=== PATIENT | male | born 1960 | race Caucasian/White ===

== ENCOUNTER 2022-08-20 21:44 | Inpatient (IN) | payer OTHER ==
[2022-08-20] MEDS ORDERED: Ondansetron PF 4 MG/2 ML Vial ONE (22:51)
[2022-08-20] MEDS ORDERED: Morphine 4 MG/ML VIAL ONE (22:51)
[2022-08-20 23:23] LABS: #Eosinphils 0.1 thou/uL (0.0-0.7); #Lymphocytes 0.8 thou/uL (1.20-3.40); #Monocytes 0.6 thou/uL (0.11-0.59); #Neutrophils 7.2 thou/uL (1.40-6.50); %Basophils 0.1 % (0.0-1.0); %Eosinophils 0.7 % (0.0-10.0); %Lymphocytes 8.7 % (21.0-51.0); %Monocytes 7.1 % (0.0-10.0); %Neutrophils 83.4 % (42.0-75.0); Hemoglobin 9.4 g/dL (14.0-18.0); Mean Corpuscular HGB CONC 33.4 g/dL (32.0-36.0); Mean Corpuscular Hemoglobin 29.1 pg (27.0-31.0); Mean Corpuscular Volume 87.3 fl (78.0-98.0); Mean Platelet Volume 7.9 fL (7.4-10.4); Platelet Count 269 10x3/uL (130-400); RBC Distribution Width 20.6 % (11.5-14.5); Red Blood Cell (RBC) Count 3.23 mill/uL (4.70-6.10); White Blood Cell (WBC) Count 8.7 10x3/uL (4.8-10.8)
[2022-08-20 23:34] LABS: Prothrombin Time 13.5 sec (12.0-14.7)
[2022-08-20 23:35] LABS: PTT 37.1 sec (22.9-36.1)
[2022-08-20 23:42] LABS: ALT (SGPT) 17 U/L (8-55); AST (SGOT) 17 U/L (5-34); Albumin 3.6 g/dL (3.4-4.8); Alkaline Phosphatase 164 U/L (40-110); Anion Gap 12 mmol/L (10-20); BUN (Urea Nitrogen) 7 mg/dL (8.4-25.7); Bilirubin, Total 0.3 mg/dL (0.2-1.2); Calc. Creatinine Clearance 0 mL/min (70-130); Calcium 8.7 mg/dL (7.8-10.44); Carbon Dioxide 21 mmol/L (23-31); Chloride 107 mmol/L (98-107); Estimated GFR 101; Globulin 2.9 g/dL (2.4-3.5); Glucose 110 mg/dL (80-115); Potassium 3.2 mmol/L (3.5-5.1); Protein, Total 6.5 g/dL (5.8-8.1); Sodium 137 mmol/L (136-145)
[2022-08-21] MEDS ORDERED: Ipratropium/Albuterol 3 ML NEB NEB PRN (01:44)
[2022-08-21] MEDS ORDERED: TETANUS, DIPHTHERIA TOX,ADULT (TDVAX) 0.5 ML VIAL IM ONE (01:44)
[2022-08-21] MEDS ORDERED: Dextrose 5% in Water 1,000 ML IV PRN (01:44)
[2022-08-21] MEDS ORDERED: Ondansetron PF 4 MG/2 ML Vial IVP PRN (01:44)
[2022-08-21] MEDS ORDERED: Morphine 2 MG/ML VIAL SLOW IVP PRN (01:44)
[2022-08-21] MEDS ORDERED: Ondansetron ODT 4 MG TAB PO PRN (01:44)
[2022-08-21] MEDS ORDERED: Dextrose 50% Abboject 50 ML SYRINGE SLOW IVP PRN (01:44)
[2022-08-21] MEDS ORDERED: Sodium Chloride 0.9% 1,000 ML IV SCH (01:45)
[2022-08-21] MEDS ORDERED: Morphine 4 MG/ML VIAL ONE (02:02)
[2022-08-21 02:20] LABS: Magnesium 1.9 mg/dL (1.6-2.6); Phosphorus 3.8 mg/dL (2.3-4.7)
[2022-08-21 03:29] VITALS: BMI 25.1
[2022-08-21] MEDS: Cyclobenzaprine 10 MG TAB PO PRN ×2 (03:39→20:07)
[2022-08-21] MEDS: traMADol HCl 50 MG TAB PO PRN (03:39)
[2022-08-21] MEDS ORDERED: Potassium Chloride 40 MEQ in Premix Bag 1 BAG IVPB SCH (04:30)
[2022-08-21] MEDS ORDERED: Magnesium 2 GM/50 ML(in water) 2 GM in Premix Bag 1 BAG IVPB SCH (04:30)
[2022-08-21 05:07] LABS: SARS-CoV-2 NAA Rapid Test Not Detected (NotDetected)
[2022-08-21] MEDS: traMADol HCl 50 MG TAB PO SCH ×3 (05:48→18:18)
[2022-08-21] MEDS: Acetaminophen 500 MG TAB PO SCH ×3 (05:48→18:16)
[2022-08-21] MEDS ORDERED: Ketorolac Tromethamine 30 MG/ML VIAL IVP SCH (06:00)
[2022-08-21] MEDS ORDERED: Lorazepam 0.5 MG TAB PO PRN (08:15)
[2022-08-21] MEDS ORDERED: Sucralfate 1 GM TAB PO SCH (08:30)
[2022-08-21] MEDS: Polyethylene Glycol 3350 17 GM Packet PO SCH (08:33)
[2022-08-21] MEDS: Senokot S 8.6-50 MG TAB PO SCH ×2 (08:33→20:06)
[2022-08-21] MEDS: Sertraline 100 MG TAB PO SCH (08:33)
[2022-08-21] MEDS ORDERED: Famotidine 20 MG TAB PO SCH ×2 (09:00)
[2022-08-21] MEDS ORDERED: CEFAZOLIN 2 GM VIAL ONE (09:16)
[2022-08-21] MEDS ORDERED: Sodium Chloride 0.9% 100 ML ONE (09:16)
[2022-08-21] MEDS ORDERED: Fentanyl 100 MCG/2 ML VIAL ONE ×3 (09:17→12:09)
[2022-08-21] MEDS ORDERED: fentaNYL PF 100 MCG/2 ML SYRINGE ONE (10:01)
[2022-08-21] MEDS ORDERED: PROPOFOL 200 MG/20 ML VIAL ONE (10:18)
[2022-08-21] MEDS ORDERED: NEOSTIGMINE 3 MG/3 ML SYR 3 MG/3 ML SYRINGE ONE (10:18)
[2022-08-21] MEDS ORDERED: PHENYLEPHRINE-NS 100 MCG/ML 10 ML SYRINGE ONE (10:18)
[2022-08-21] MEDS ORDERED: Dexamethasone 20 MG/5 ML VIAL ONE (10:18)
[2022-08-21] MEDS ORDERED: Ondansetron PF 4 MG/2 ML Vial ONE (10:18)
[2022-08-21] MEDS ORDERED: Ketorolac Tromethamine 30 MG/ML VIAL ONE (10:18)
[2022-08-21] MEDS ORDERED: Rocuronium Bromide 10 MG/ML (10ML VIAL) ONE (10:18)
[2022-08-21] MEDS ORDERED: Glycopyrrolate 0.2 MG/ML 5 ML SYRINGE ONE (10:18)
[2022-08-21] MEDS ORDERED: Ondansetron HCl/PF 4 MG/2 ML Vial IVP PRN (11:23)
[2022-08-21] MEDS ORDERED: HYDROmorphone 2 MG/ML VIAL SLOW IVP PRN (11:23)
[2022-08-21] MEDS: Morphine 4 MG/ML VIAL SLOW IVP PRN ×2 (15:11→20:07)
[2022-08-21] MEDS: CEFAZOLIN 2 GM in Sodium Chloride 0.9% 100 ML IVPB SCH (18:18)
[2022-08-21] MEDS: traZODone HCl 50 MG TAB PO SCH (21:34)
[2022-08-22] MEDS: traMADol HCl 50 MG TAB PO SCH ×4 (01:19→17:32)
[2022-08-22] MEDS: CEFAZOLIN 2 GM in Sodium Chloride 0.9% 100 ML IVPB SCH (01:20)
[2022-08-22] MEDS: Acetaminophen 500 MG TAB PO SCH ×4 (01:20→17:32)
[2022-08-22 06:05] LABS: #Eosinphils 0.1 thou/uL (0.0-0.7); #Lymphocytes 0.9 thou/uL (1.20-3.40); #Monocytes 0.4 thou/uL (0.11-0.59); #Neutrophils 3.3 thou/uL (1.40-6.50); %Basophils 0.4 % (0.0-1.0); %Eosinophils 2.9 % (0.0-10.0); %Monocytes 8.8 % (0.0-10.0); %Neutrophils 68.9 % (42.0-75.0); Hemoglobin 7.5 g/dL (14.0-18.0); Mean Corpuscular HGB CONC 30.9 g/dL (32.0-36.0); Mean Corpuscular Hemoglobin 27.5 pg (27.0-31.0); Mean Corpuscular Volume 89.1 fl (78.0-98.0); Mean Platelet Volume 8.5 fL (7.4-10.4); Platelet Count 196 10x3/uL (130-400); RBC Distribution Width 20.7 % (11.5-14.5); Red Blood Cell (RBC) Count 2.74 mill/uL (4.70-6.10); White Blood Cell (WBC) Count 4.8 10x3/uL (4.8-10.8)
[2022-08-22 06:36] LABS: Anion Gap 10 mmol/L (10-20); BUN (Urea Nitrogen) 8 mg/dL (8.4-25.7); Calc. Creatinine Clearance 147 mL/min (70-130); Calcium 8.5 mg/dL (7.8-10.44); Carbon Dioxide 26 mmol/L (23-31); Chloride 108 mmol/L (98-107); Estimated GFR 107; Glucose 97 mg/dL (80-115); Phosphorus 3.2 mg/dL (2.3-4.7); Potassium 3.8 mmol/L (3.5-5.1); Sodium 140 mmol/L (136-145)
[2022-08-22] MEDS: Polyethylene Glycol 3350 17 GM Packet PO SCH (08:12)
[2022-08-22] MEDS: Sertraline 100 MG TAB PO SCH (08:13)
[2022-08-22] MEDS: Sucralfate 1 GM TAB PO SCH (08:13)
[2022-08-22] MEDS: Senokot S 8.6-50 MG TAB PO SCH ×2 (08:13→20:24)
[2022-08-22] MEDS: traMADol HCl 50 MG TAB PO PRN ×3 (08:17→21:30)
[2022-08-22] MEDS ORDERED: PHOS-NAK 1 PKT PACK PO SCH (08:30)
[2022-08-22] MEDS: traZODone HCl 50 MG TAB PO SCH (20:24)
[2022-08-22] MEDS: Cyclobenzaprine 10 MG TAB PO PRN (21:31)
[2022-08-23] MEDS: Acetaminophen 500 MG TAB PO SCH ×4 (00:03→16:55)
[2022-08-23] MEDS: traMADol HCl 50 MG TAB PO SCH ×4 (00:04→16:55)
[2022-08-23 05:30] LABS: #Eosinphils 0.2 thou/uL (0.0-0.7); #Lymphocytes 0.9 thou/uL (1.20-3.40); #Monocytes 0.4 thou/uL (0.11-0.59); #Neutrophils 3.3 thou/uL (1.40-6.50); %Basophils 0.3 % (0.0-1.0); %Eosinophils 4.9 % (0.0-10.0); %Lymphocytes 19.2 % (21.0-51.0); %Monocytes 7.8 % (0.0-10.0); %Neutrophils 67.8 % (42.0-75.0); Hemoglobin 7.4 g/dL (14.0-18.0); Mean Corpuscular HGB CONC 31.5 g/dL (32.0-36.0); Mean Corpuscular Hemoglobin 27.8 pg (27.0-31.0); Mean Corpuscular Volume 88.4 fl (78.0-98.0); Mean Platelet Volume 8.2 fL (7.4-10.4); Platelet Count 199 10x3/uL (130-400); RBC Distribution Width 20.6 % (11.5-14.5); Red Blood Cell (RBC) Count 2.64 mill/uL (4.70-6.10); White Blood Cell (WBC) Count 4.8 10x3/uL (4.8-10.8)
[2022-08-23 05:53] LABS: Anion Gap 9 mmol/L (10-20); BUN (Urea Nitrogen) 9 mg/dL (8.4-25.7); Calc. Creatinine Clearance 154 mL/min (70-130); Calcium 8.4 mg/dL (7.8-10.44); Carbon Dioxide 28 mmol/L (23-31); Chloride 106 mmol/L (98-107); Estimated GFR 108; Glucose 113 mg/dL (80-115); Magnesium 1.7 mg/dL (1.6-2.6); Phosphorus 3.4 mg/dL (2.3-4.7); Potassium 3.9 mmol/L (3.5-5.1); Sodium 139 mmol/L (136-145)
[2022-08-23] MEDS: Sucralfate 1 GM TAB PO SCH (06:31)
[2022-08-23] MEDS: Sertraline 100 MG TAB PO SCH (08:33)
[2022-08-23] MEDS: Polyethylene Glycol 3350 17 GM Packet PO SCH (08:33)
[2022-08-23] MEDS: traMADol HCl 50 MG TAB PO PRN (08:33)
[2022-08-23] MEDS: Senokot S 8.6-50 MG TAB PO SCH (08:33)
[2022-08-23] MEDS ORDERED: Magnesium Sulfate In Water 4 GM in Premix Bag 1 BAG IVPB SCH (09:15)
[2022-08-23 15:40] VITALS: TEMP 98.1
[2022-08-23 15:43] VITALS: BP 126/79
[2022-08-23 16:06] LABS: #Eosinphils 0.2 thou/uL (0.0-0.7); #Lymphocytes 1.1 thou/uL (1.20-3.40); #Monocytes 0.4 thou/uL (0.11-0.59); #Neutrophils 3.5 thou/uL (1.40-6.50); %Basophils 0.7 % (0.0-1.0); %Eosinophils 4.1 % (0.0-10.0); %Lymphocytes 20.4 % (21.0-51.0); %Monocytes 8.3 % (0.0-10.0); %Neutrophils 66.5 % (42.0-75.0); Hemoglobin 8.2 g/dL (14.0-18.0); Mean Corpuscular HGB CONC 30.8 g/dL (32.0-36.0); Mean Corpuscular Hemoglobin 27.6 pg (27.0-31.0); Mean Corpuscular Volume 89.8 fl (78.0-98.0); Mean Platelet Volume 7.6 fL (7.4-10.4); Platelet Count 218 10x3/uL (130-400); RBC Distribution Width 19.8 % (11.5-14.5); Red Blood Cell (RBC) Count 2.95 mill/uL (4.70-6.10); White Blood Cell (WBC) Count 5.3 10x3/uL (4.8-10.8)
== END 2022-08-23 17:00 | disposition home or self-care (01) | DRG 481 ==
LOC: ERS 21:44 → SURG B 08-21 01:44
PROVIDERS: ADMIT Specialist; ATTEND Specialist
PROC: 0QS706Z Reposition Left Upper Femur with Intramedullary Internal Fixation Device, Open Approach (ICD-10-PCS; principal; 2022-08-21)
PROC: 30233N1 Transfusion of Nonautologous Red Blood Cells into Peripheral Vein, Percutaneous Approach (ICD-10-PCS; 2022-08-23)
DX: S72.142A Displaced intertrochanteric fracture of left femur, initial encounter for closed fracture (principal); C16.9 Malignant neoplasm of stomach, unspecified; D62 Acute posthemorrhagic anemia; D49.2 Neoplasm of unspecified behavior of bone, soft tissue, and skin; Z20.822 Contact with and (suspected) exposure to COVID-19; D63.0 Anemia in neoplastic disease; W01.0XXA Fall on same level from slipping, tripping and stumbling without subsequent striking against object, initial encounter; F17.210 Nicotine dependence, cigarettes, uncomplicated; D64.9 Anemia, unspecified; E87.6 Hypokalemia; I25.10 Atherosclerotic heart disease of native coronary artery without angina pectoris; Z95.5 Presence of coronary angioplasty implant and graft; Z90.49 Acquired absence of other specified parts of digestive tract; Z79.899 Other long term (current) drug therapy; I25.2 Old myocardial infarction
CPT/HCPCS: 36415; 36430; 71045; 72170; 80048; 80053; 83735; 84100; 85025; 85610; 85730; 86850; 86900; 86901; 90714; 93005; 96374; 96375; 96376; C1713; J1100; J1885; J2270; J2405; J2704; J3010; J3475; J3480; J3490; J7050; P9016; U0002

== ENCOUNTER 2025-04-08 12:34 | Inpatient (IN) | payer MEDICARE, OTHER ==
[2025-04-08] MEDS ORDERED: Ondansetron PF 4 MG/2 ML Vial SLOW IVP PRN (13:42)
[2025-04-08] MEDS ORDERED: Communication Order-Pharmacy FS SCH (13:45)
[2025-04-08 14:31] LABS: #Basophils 0.04 10x3/uL (0.0-0.2); #Eosinophils 0.06 10x3/uL (0.0-0.7); #Monocytes 0.91 10x3/uL (0.11-0.59); #Neutrophils 6.06 10x3/uL (1.40-6.50); %Basophils 0.4 % (0.0-1.0); %Eosinophils 0.6 % (0.0-10.0); %Lymphocytes 25.4 % (21.0-51.0); %Monocytes 9.5 % (0.0-10.0); %Neutrophils 63.7 % (42.0-75.0); Hematocrit 37.6 % (42.0-52.0); Hemoglobin 12.0 g/dL (14.0-18.0); Mean Corpuscular Hemoglobin 29.4 pg (27.0-31.0); Mean Corpuscular Volume 92.2 fL (78.0-98.0); Platelet Count 265 10x3/uL (130-400); Red Blood Cell (RBC) Count 4.08 mill/uL (4.70-6.10); White Blood Cell (WBC) Count 9.53 10x3/uL (4.8-10.8)
[2025-04-08 14:46] LABS: INR-International Normal Ratio 1.0; PTT 28.6 sec (22.9-36.1); Prothrombin Time 13.3 sec (12.0-14.7)
[2025-04-08 15:02] LABS: ALT (SGPT) 28 U/L (Less than 45); AST (SGOT) 45 U/L (11-34); Albumin 4.1 g/dL (3.1-4.5); Alkaline Phosphatase 112 U/L (40-110); Anion Gap 21 mmol/L (10-20); BUN (Urea Nitrogen) 7 mg/dL (8.4-25.7); Bilirubin, Total 0.3 mg/dL (0.3-1.2); Calc. Creatinine Clearance 0 mL/min (70-130); Calcium 8.9 mg/dL (7.8-10.44); Carbon Dioxide 26 mmol/L (23-31); Chloride 103 mmol/L (98-107); Globulin 3.0 g/dL (2.4-3.5); Glucose 104 mg/dL (80-115); Potassium 3.6 mmol/L (3.5-5.1); Sodium 146 mmol/L (136-145)
[2025-04-08] MEDS ORDERED: Ketorolac Tromethamine 30 MG (1 mL) VIAL ONE (16:29)
[2025-04-08 20:06] VITALS: BMI 31.6
[2025-04-08] MEDS: Aspirin 81 mg Enteric Coated Tablet PO SCH (20:26)
[2025-04-08] MEDS: HYDROcodone/Acetaminophen 10/325 mg Tablet PO PRN (22:16)
[2025-04-08] MEDS: Losartan 25 MG TAB PO SCH (22:17)
[2025-04-08] MEDS: hydrALAZINE 20 MG/ML VIAL SLOW IVP PRN (23:20)
[2025-04-09] MEDS: Ketorolac Tromethamine 30 MG (1 mL) VIAL IVP PRN (00:19)
[2025-04-09] MEDS: Losartan 25 MG TAB PO SCH (08:58)
[2025-04-09] MEDS ORDERED: Losartan 25 MG TAB PO SCH (09:00)
[2025-04-09] MEDS: PNEUMOC 20-VAL CONJ-DIP CRM/PF 0.5 ML SYRINGE IM ONE (09:08)
[2025-04-09] MEDS ORDERED: Ropivacaine 0.5% HCl/PF (150 MG/30 ML VIAL) ONE (12:00)
[2025-04-09] MEDS ORDERED: Rocuronium Bromide 10 MG/ML (10ML VIAL) ONE (12:28)
[2025-04-09] MEDS ORDERED: Lidocaine 1% PF 5 ML VIAL ONE (12:28)
[2025-04-09] MEDS ORDERED: PROPOFOL 20 ML ONE (12:28)
[2025-04-09] MEDS ORDERED: fentaNYL PF 100 MCG/2 ML SYRINGE ONE (12:28)
[2025-04-09] MEDS ORDERED: CEFAZOLIN 2 GM VIAL ONE (12:30)
[2025-04-09] MEDS ORDERED: Ondansetron PF 4 MG/2 ML Vial ONE (13:08)
[2025-04-09] MEDS ORDERED: HYDROmorphone 2 MG/ML VIAL ONE (13:29)
[2025-04-09] MEDS ORDERED: PHENYLEPHRINE-NS 100 MCG/ML 10 ML SYRINGE ONE ×2 (13:36→14:21)
[2025-04-09] MEDS ORDERED: SUGAMMADEX SODIUM 200 MG/2 ML VIAL ONE (13:57)
[2025-04-09] MEDS ORDERED: dilTIAZem 25 MG/5 ML VIAL ONE ×3 (14:26→14:41)
[2025-04-09] MEDS: dilTIAZem 25 MG/5 ML VIAL SLOW IVP SCH (14:39)
[2025-04-09] MEDS ORDERED: Diltiazem HCl/D5W 125 MG in Premix 1 BAG IVPB SCH (14:45)
[2025-04-09] MEDS: Metoprolol Tartrate 5 MG (5 mL) VIAL IVP SCH ×2 (14:46→14:56)
[2025-04-09] MEDS ORDERED: Metoprolol Tartrate 5 MG (5 mL) VIAL ONE (14:46)
[2025-04-09 17:33] LABS: Magnesium 1.9 mg/dL (1.6-2.6)
[2025-04-09] MEDS: Potassium Chloride 20 MEQ in Premix 1 BAG IVPB SCH (18:49)
[2025-04-09] MEDS: Magnesium Sulfate In Water 4 GM in Premix 1 BAG IVPB SCH (19:35)
[2025-04-09] MEDS: Pantoprazole 40 MG VIAL IVP SCH (21:25)
[2025-04-10] MEDS: Amiodarone 200 MG TAB PO SCH (10:12)
[2025-04-10] MEDS: Metoprolol Succinate XL 25 MG ER.TAB PO SCH (10:12)
[2025-04-10 10:13] LABS: #Basophils Less than 0.03 10x3/uL (0.0-0.2); #Eosinophils 0.03 10x3/uL (0.0-0.7); #Monocytes 0.78 10x3/uL (0.11-0.59); #Neutrophils 5.44 10x3/uL (1.40-6.50); %Basophils 0.1 % (0.0-1.0); %Eosinophils 0.4 % (0.0-10.0); %Lymphocytes 14.7 % (21.0-51.0); %Monocytes 10.6 % (0.0-10.0); %Neutrophils 73.7 % (42.0-75.0); Hematocrit 34.7 % (42.0-52.0); Hemoglobin 11.0 g/dL (14.0-18.0); Mean Corpuscular Hemoglobin 29.7 pg (27.0-31.0); Mean Corpuscular Volume 93.8 fL (78.0-98.0); Platelet Count 196 10x3/uL (130-400); Red Blood Cell (RBC) Count 3.70 mill/uL (4.70-6.10); White Blood Cell (WBC) Count 7.39 10x3/uL (4.8-10.8)
[2025-04-10 10:39] LABS: Anion Gap 15 mmol/L (10-20); BUN (Urea Nitrogen) 8 mg/dL (8.4-25.7); Calc. Creatinine Clearance 186 mL/min (70-130); Calcium 8.6 mg/dL (7.8-10.44); Carbon Dioxide 26 mmol/L (23-31); Chloride 100 mmol/L (98-107); Glucose 123 mg/dL (80-115); Magnesium 2.1 mg/dL (1.6-2.6); Potassium 3.6 mmol/L (3.5-5.1); Sodium 137 mmol/L (136-145)
[2025-04-11 03:35] VITALS: TEMP 97.7
[2025-04-11 05:40] LABS: #Basophils 0.03 10x3/uL (0.0-0.2); #Eosinophils 0.21 10x3/uL (0.0-0.7); #Monocytes 0.66 10x3/uL (0.11-0.59); #Neutrophils 5.71 10x3/uL (1.40-6.50); %Basophils 0.4 % (0.0-1.0); %Eosinophils 2.7 % (0.0-10.0); %Lymphocytes 14.3 % (21.0-51.0); %Monocytes 8.5 % (0.0-10.0); %Neutrophils 73.6 % (42.0-75.0); Hematocrit 32.6 % (42.0-52.0); Hemoglobin 10.4 g/dL (14.0-18.0); Mean Corpuscular Hemoglobin 29.9 pg (27.0-31.0); Mean Corpuscular Volume 93.7 fL (78.0-98.0); Platelet Count 192 10x3/uL (130-400); Red Blood Cell (RBC) Count 3.48 mill/uL (4.70-6.10); White Blood Cell (WBC) Count 7.76 10x3/uL (4.8-10.8)
[2025-04-11 05:52] LABS: Anion Gap 12 mmol/L (10-20); BUN (Urea Nitrogen) 15 mg/dL (8.4-25.7); Calc. Creatinine Clearance 164 mL/min (70-130); Calcium 8.5 mg/dL (7.8-10.44); Carbon Dioxide 26 mmol/L (23-31); Chloride 102 mmol/L (98-107); Glucose 131 mg/dL (80-115); Magnesium 2.0 mg/dL (1.6-2.6); Potassium 3.7 mmol/L (3.5-5.1); Sodium 136 mmol/L (136-145)
[2025-04-11] MEDS: Metoprolol Succinate XL 25 MG ER.TAB PO SCH (09:30)
[2025-04-11 12:17] VITALS: BP 158/78
[2025-04-11] MEDS ORDERED: Amiodarone 200 MG TAB PO SCH (21:00)
== END 2025-04-11 13:23 | disposition home or self-care (01) | DRG 493 ==
LOC: ERS 12:34 → ERHOLD 13:42 → T4-A 19:42 → IMCU/EMU 04-09 18:39 → SURG A 04-10 17:18
PROVIDERS: ADMIT Orthopaedic Surgery; ATTEND Hospitalist
PROC: 0PSG04Z Reposition Left Humeral Shaft with Internal Fixation Device, Open Approach (ICD-10-PCS; principal; 2025-04-09)
PROC: 3E03329 Introduction of Other Anti-infective into Peripheral Vein, Percutaneous Approach (ICD-10-PCS; 2025-04-09)
PROC: 3E0234Z Introduction of Serum, Toxoid and Vaccine into Muscle, Percutaneous Approach (ICD-10-PCS; 2025-04-09)
PROC: 3E033XZ Introduction of Vasopressor into Peripheral Vein, Percutaneous Approach (ICD-10-PCS; 2025-04-09)
DX: S42.432A Displaced fracture (avulsion) of lateral epicondyle of left humerus, initial encounter for closed fracture (principal); K92.2 Gastrointestinal hemorrhage, unspecified; F32.A Depression, unspecified; S42.492A Other displaced fracture of lower end of left humerus, initial encounter for closed fracture; Z98.890 Other specified postprocedural states; D64.9 Anemia, unspecified; I25.2 Old myocardial infarction; Z79.899 Other long term (current) drug therapy; Z72.0 Tobacco use; I73.9 Peripheral vascular disease, unspecified; I25.10 Atherosclerotic heart disease of native coronary artery without angina pectoris; I10 Essential (primary) hypertension; M19.90 Unspecified osteoarthritis, unspecified site; I48.91 Unspecified atrial fibrillation; Z85.01 Personal history of malignant neoplasm of esophagus; Z92.21 Personal history of antineoplastic chemotherapy; E78.5 Hyperlipidemia, unspecified; R13.19 Other dysphagia
CPT/HCPCS: 29105; 36415; 71045; 80048; 80053; 83735; 84100; 85025; 85610; 85730; 93005; 93010; 96374; 96375; 96376; C1713; J0360; J1100; J1171; J1885; J2250; J2470; J2704; J2795; J3475